=== PATIENT | male | born 1960 | race Caucasian/White ===

== ENCOUNTER → 2016-03-14 08:11 | Day surgery (SDC) | payer BC ==
[~2016-03-14 08:11] MED LIST: Buffered Lidocaine 1% SYR 3ML* 3 ML/SYR SYRINGE INTRADERM ONE; Buffered Lidocaine 1% SYR 3ML* 3 ML/SYR SYRINGE ONE; Bupivacaine 0.25% EPI 200,000* 30 ML SDV ONE; Cisatracurium* 2 MG/ML MDV 10 ML ONE; Dexamethasone IV* 4 MG/ML 1 ML (4 MG) ONE; DiMENhydriNATE IV* 50 MG/ML VIAL IV PUSH PRN; EPHEDrine (Pressors)* 50 MG/ML VIAL ONE; Famotidine IV* 10 MG/ML 2 ML (20 mg) IV ONE; Famotidine IV* 10 MG/ML 2 ML (20 mg) ONE; Glycopyrrolate IV* 0.2 MG/ML 1 ML VIAL ONE; HYDROmorphone INJ* 1 MG/ML CARPUJECT SYRINGE IV PRN; KETAMINE HCL* 50 MG/ML 10 ML VIAL ONE; Ketorolac INJ* 30 MG/ML 1 ML VIAL ONE; Lidocaine 2% MPF* 2 ML VIAL ONE; Metoclopramide TAB* 10 MG ONE; Metoclopramide TAB* 10 MG PO ONE; Midazolam* 1 MG/ML 5 ML VIAL (5 MG) ONE; Neostigmine Methylsulfate* 2 MG/2 ML SYRINGE ONE; Ondansetron INJ* 2 MG/ML VIAL IV PRN; Ondansetron INJ* 2 MG/ML VIAL ONE; Propofol* 10 MG/ML 20 ML BTL IV PUSH ONE; ceFAZolin 2 GM PREMIX (*) 2 GM/50 ML BAG IVPB ONE; fentaNYL* 50 MCG/ML 2 ML VIAL (100 MCG VIAL) IV PRN; fentaNYL* 50 MCG/ML 5 ML VIAL (250 MCG VIAL) ONE; oxyCODONE/Acetamin 5/325 MG* TAB PO PRN
--- NOTE | 2016-03-14 12:34 | SURGPN ---
Brief Operative Note - Surgery Procedures: Procedures Pre-OP Diagnoses: Bilateral inguinal hernia Post-op Diagnosis: same Procedure: Laparoscopic bilateral hernia repair with mesh Surgeon: Tomy Asst: Deonte Anethesia: ESTEFANIA Rodriguez EBL: minimal IVF: 2450cc LR Specimen: none Drains: none
[2016-03-14 14:04] VITALS: BP 120/71
--- NOTE | 2016-03-14 21:45 | OP ---
DATE OF OPERATION: 03/14/16 [facility] DATE OF : 64 SURGEON: Eduardo Huitron MD LOCAL [employer] SYSTEMS ADMINSTRATOR: David Marshall MD ANESTHESIOLOGIST: Dr. Rodriguez. ANESTHESIA: General. PRE-OP DIAGNOSIS: Bilateral inguinal hernia. POST-OP DIAGNOSIS: Bilateral inguinal hernia. OPERATIVE PROCEDURE: Laparoscopic bilateral inguinal hernia repair with mesh. ESTIMATED BLOOD LOSS: Minimal. FLUIDS: 2450 cc of lactated Ringer's given. SPECIMEN: None. COUNTS: Lap pad count and instrument count correct at the end of procedure. DESCRIPTION OF PROCEDURE: The patient was identified in the preoperative area, marked, clipped off hair, case discussed, and the patient signed consent. He was taken back to the operating room and placed on the operating table in supine position. Preoperative antibiotics were given. Sequential devices were placed on bilateral lower extremities. General anesthesia was induced. Estrada catheter was inserted and the patient's abdomen was prepped and draped in a standard surgical fashion and a time-out was performed. An infraumbilical incision was made. This was deepened down through the anterior fascia on the right. This was incised and the rectus pillar retracted laterally and the preperitoneal plane opened up. A balloon dissector was then inserted towards the pubic symphysis and a camera was inserted through this and the balloon dilator was insufflated. This opened up a nice peritoneal space and the balloon dilator was removed and a blunt cannula was inserted. Laparoscope was inserted through this and additional trocars were placed in the following position: Two 5 mm along the lower midline. Blunt dissection was then carried out to expose pubic symphysis and Jimmie ligament on both left and right. The epigastric vessels were isolated on the left side and maintained anteriorly. We entered into Bogros space and cleared off the space laterally. An indirect hernia was identified. The sac was bluntly dissected from the spermatic structures until it completely reduced intra-abdominally. There was no direct hernia. Then, attention was turned towards the right side. Again, Jimmie ligament was cleared off. There was no direct hernia. The lateral space of Bogros was cleared off and the peritoneum extending towards the internal ring was identified. This was bluntly freed up. It was not as large hernia as the left side. We did enter into the peritoneum, but this was reapproximated with 5-mm clips. With the myopectineal orifice cleared of any herniation, the right- sided 3D Bard mesh was then opened up, large size. This was placed into the preperitoneal plane and allowed to unfurl and tacked to Jimmie ligament and also laterally and also anteriorly at the rectus muscle laid without wrinkling or tension. A similar mesh was placed on the left side in a similar fashion, tacked such that the 2 meshes were crossing. Also tacked the Jimmie ligament also laterally. We did pull up this larger hernia sac and loosely tacked it to the inside of the mesh. The preperitoneal plane was then allowed to collapse. Trocar was removed under direct vision. Attention was then turned towards the posterior fascia at the umbilical port site. This was incised and entry into the abdominal cavity was made with a small incision just to allow the air to come out. Once this desufflated, we reapproximated the posterior fascia with 2-0 Polysorb sutures and the anterior fascia was reapproximated with 0 Polysorb suture in a [id number] fashion. All 3 skin incisions were reapproximated with 4-0 Monocryl subcuticular sutures followed by Steri-Strips and sterile dressing. The patient tolerated the procedure well. Estrada catheter was removed and he was awoken up and transferred to PACU in stable condition. CC: Vikas Donnelly MD * [id number]/[facility] #: [id number] TOM
== END | disposition home or self-care (01) ==
LOC: OR 08:11
PROVIDERS: ATTEND Surgery
DX: K40.20 Bilateral inguinal hernia, without obstruction or gangrene, not specified as recurrent (principal); I10 Essential (primary) hypertension; G47.33 Obstructive sleep apnea (adult) (pediatric)
CPT/HCPCS: A9270-GY; C1776; C1781; J0690; J1100; J1885; J2250; J2405; J2704; J3010

== ENCOUNTER 2016-07-15 03:34 | Observation (INO) | payer BC ==
[2016-07-15] MEDS ORDERED: Aspirin Low Dose CHEW TAB* 81 MG PO ONE (04:00)
[2016-07-15 04:13] LABS: Hematocrit 47 % (42-52); Hemoglobin 15.9 g/dl (14.0-18.0); Mean Corpuscular HGB Conc 34 g/dl (31-36); Mean Corpuscular Hemoglobin 32 pg (27-31); Mean Corpuscular Volume 95 fL (80-94); Mean Platelet Volume 8 um3 (7.4-10.4); Red Blood Count 4.93 10^6/ul (4.0-5.4); Red Cell Distribution Width 13 % (10.5-15); White Blood Count 7.3 10^3/ul (3.5-10.8)
[2016-07-15 04:29] LABS: Albumin 4.4 g/dL (3.2-5.2); BUN/Creatinine Ratio 18.4 (8-20); Calcium 9.3 mg/dL (8.6-10.3); EGFR African American 102.9 (>60); Magnesium 2.1 mg/dL (1.9-2.7); Potassium 3.9 mmol/L (3.5-5.0); Total Bilirubin 0.5 mg/dL (0.2-1.0); Total Protein 7.4 g/dL (6.4-8.9)
--- NOTE | 2016-07-15 04:33 | ED ---
Domo Nugent SooYoung, scribed for Gumaro Rothman MD on 07/15/16 at 0407 . 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 Pt was recently dx with angina and is scheduled for a stress test. He's had varying degrees of nausea for the past 24 hours. Additionally, he notes he's been feeling anxious and unable to sleep tonight due to the angina. PCP is Dr. Donnelly. - History of Current Complaint Chief Complaint: EDChestPainROMI Time Seen by Provider: 07/15/16 03:58 Hx Obtained From: Patient Onset/Duration: Atraumatic, Still Present Timing: Constant Current Severity: Moderate Pain Intensity: 5 Pain Scale Used: 0-10 Numeric Associated Signs and Symptoms: Positive: Anxiety, Nausea - Allergy/Home Medications Allergies/Adverse Reactions: Allergies Allergy/AdvReac Type Severity Reaction Status Date / Time ENVIRONMENTAL Allergy SNEEZE Uncoded 07/15/16 05:33 Home Medications: Home Medications Aspirin EC Low Dose* [Ecotrin EC Low Dose 81 MG*] 81 mg PO DAILY 07/15/16 [ History Confirmed 07/15/16] PMH/Surg Hx/FS Hx/Imm Hx Previously Healthy: No Cardiovascular History: Reports: Hx Angina, Hx Hypertension Respiratory History: Reports: Hx Sleep Apnea Sensory History: Reports: Hx Contacts or Glasses - GLASSES Denies: Hx Hearing Aid Opthamlomology History: Reports: Hx Contacts or Glasses - GLASSES - Surgical History Surgery Procedure, Year, and Place: [place] [facility] [place] SURGERY, [facility]. [place] [facility] [place] Anesthesia Reactions: Yes - DOES NOT COME OUT WELL Infectious Disease History: Denies: Traveled Outside the [place] in Last 30 Days - Family History Known Family History: Positive: Other - POS: ANESTHESIA RXN, SISTER - Social History Occupation: Employed Full-time Lives: With Family Alcohol Use: None Hx Substance Use: No Substance Use Type: Reports: None Hx Tobacco Use: No Smoking Status (MU): Never Smoked Tobacco Have You Smoked in the Last Year: No Review of Systems Positive: Chest Pain Positive: Nausea Positive: Anxious All Other Systems Reviewed And Are Negative: Yes Physical Exam Triage Information Reviewed: Yes Vital Signs On Initial Exam: Initial Vitals Temp Pulse Resp BP Pulse Ox 98 F 86 18 157/108 99 07/15/16 03:38 07/15/16 03:38 07/15/16 03:38 07/15/16 03:38 07/15/16 03:38 Vital Signs Reviewed: Yes Appearance: Positive: Well-Appearing, No Pain Distress Skin: Positive: Warm Head/Face: Positive: Normal Head/Face Inspection Eyes: Positive: VIPIN ENT: Positive: Hearing grossly normal Neck: Positive: Supple Respiratory/Lung Sounds: Positive: Clear to Auscultation, Breath Sounds Present Cardiovascular: Positive: RRR Abdomen Description: Positive: Nontender, Soft Bowel Sounds: Positive: Present Musculoskeletal: Positive: Strength/ROM Intact Neurological: Positive: Alert, Oriented to Person Place, Time Diagnostics - Vital Signs Vital Signs Temp Pulse Resp BP Pulse Ox 07/15/16 03:38 98 F 86 18 157/108 99 - Laboratory Lab Results: Lab Results 07/15/16 07/15/16 07/15/16 Range/Units 04:00 04:00 04:00 WBC 7.3 (3.5-10.8) 10^3/ul RBC 4.93 (4.0-5.4) 10^6/ul Hgb 15.9 (14.0-18.0) g/dl Hct 47 (42-52) % MCV 95 H (80-94) fL MCH 32 H (27-31) pg MCHC 34 (31-36) g/dl RDW 13 (10.5-15) % Plt Count 232 (150-450) 10^3/ul MPV 8 (7.4-10.4) um3 Neut % (Auto) 63.9 (38-83) % Lymph % (Auto) 26.8 (25-47) % [place]man % (Auto) 7.0 (1-9) % Eos % (Auto) 1.6 (0-6) % Baso % (Auto) 0.7 (0-2) % Absolute Neuts (auto) 4.7 (1.5-7.7) 10^3/ul Absolute Lymphs (auto) 1.9 (1.0-4.8) 10^3/ul Absolute Monos (auto) 0.5 (0-0.8) 10^3/ul Absolute Eos (auto) 0.1 (0-0.6) 10^3/ul Absolute Basos (auto) 0 (0-0.2) 10^3/ul Absolute Nucleated RBC 0 10^3/ul Nucleated RBC % 0.1 Sodium 137 (133-145) mmol/L Potassium 3.9 (3.5-5.0) mmol/L Chloride 106 (101-111) mmol/L Carbon Dioxide 25 (22-32) mmol/L Anion Gap 6 (2-11) mmol/L BUN 18 (6-24) mg/dL Creatinine 0.98 (0.67-1.17) mg/dL Est GFR ( Amer) 102.9 (>60) Est GFR (Non-Af Amer) 80.0 (>60) BUN/Creatinine Ratio 18.4 (8-20) Glucose 106 H (70-100) mg/dL Lactic Acid 1.2 (0.5-2.0) mmol/L Calcium 9.3 (8.6-10.3) mg/dL Magnesium 2.1 (1.9-2.7) mg/dL Total Bilirubin 0.50 (0.2-1.0) mg/dL AST 18 (13-39) U/L ALT 24 (7-52) U/L Alkaline Phosphatase 60 (34-104) U/L Troponin I 0.00 (<0.04) ng/mL Total Protein 7.4 (6.4-8.9) g/dL Albumin 4.4 (3.2-5.2) g/dL Globulin 3.0 (2-4) g/dL Albumin/Globulin Ratio 1.5 (1-3) Result Diagrams: 07/15/16 09:50 07/15/16 09:30 Lab Statement: Any lab studies that have been ordered have been reviewed, and results considered in the medical decision making process. - Radiology CXR Xray Interpretation: No Acute Changes Radiology Interpretation Completed By: ED Physician - EKG 1 EKG Rhythm: Sinus Rhythm Chest Pain Course/Dx - Course Course Of Treatment: Pt is a 55 y/o M presenting with CP, nausea and anxiety. Recently diagnosed with angina. He is scheduled to have a stress test. Pt given aspirin in ED. Negative trop. CXR is nml. EKG is sinus rhythm. SO due to shift change. Dispo pending second trop. - Diagnoses Provider Diagnoses: ACS (acute coronary syndrome) Discharge - Discharge Plan Condition: Stable Disposition: ADMITTED TO [facility] Discharge Disposition Comment: SO due to shift change, pending 2nd trop The documentation as recorded by the Domo duke SooYoung accurately reflects the service I personally performed and the decisions made by me, Gumaro Rothman MD.
--- NOTE | 2016-07-15 07:51 | RAD ---
HISTORY: Chest pain COMPARISONS: March 19, 2004 VIEWS:1: Single frontal portable view of the chest at 4:10 AM FINDINGS: LINES AND TUBES: None. CARDIOMEDIASTINAL SILHOUETTE: The cardiomediastinal silhouette is normal for portable technique. PLEURA: The costophrenic angles are sharp. No pleural abnormalities are noted. LUNG PARENCHYMA: The lungs are clear. ABDOMEN: The upper abdomen is clear. There is no subphrenic gas. BONES AND SOFT TISSUES: No bone or soft tissue abnormalities are noted. IMPRESSION: NO ACTIVE CARDIOPULMONARY DISEASE.
[2016-07-15] MEDS ORDERED: Ondansetron INJ* 2 MG/ML VIAL IV PRN (09:18)
[2016-07-15] MEDS ORDERED: Acetaminophen TAB* 325 MG PO PRN (09:18)
[2016-07-15] MEDS ORDERED: Calcium Carbonate CHEW TAB* 500 MG (TUMS) PO PRN (09:22)
[2016-07-15 09:56] LABS: C Reactive Protein 1.39 mg/L (< 5.00); EGFR African American 113.5 (>60); EGFR Non-African American 88.3 (>60)
[2016-07-15 10:01] LABS: Hematocrit 47 % (42-52); Hemoglobin 16.1 g/dl (14.0-18.0); Mean Corpuscular HGB Conc 34 g/dl (31-36); Mean Corpuscular Hemoglobin 32 pg (27-31); Mean Corpuscular Volume 95 fL (80-94); Mean Platelet Volume 8 um3 (7.4-10.4); Red Blood Count 4.98 10^6/ul (4.0-5.4); Red Cell Distribution Width 13 % (10.5-15)
[2016-07-15 10:50] LABS: TSH (Thyroid Stimulating Horm) 3.93 mcIU/mL (0.34-5.60)
[2016-07-15 10:50] LABS: Erythrocyte Sed Rate 12 mm/Hr (0-20)
--- NOTE | 2016-07-15 11:25 | HP ---
HISTORY AND PHYSICAL: DATE OF ADMISSION: 07/15/16 PRIMARY CARE PROVIDER: Dr. Donnelly. ATTENDING PHYSICIAN WHILE IN THE HOSPITAL: Dr. Aicha Britton* (report is being dictated by Oneil Armijo NP). CHIEF COMPLAINT: Chest pain. HISTORY OF PRESENTING ILLNESS: Mr. Harvey is a 55-year-old male patient. He carries a history of hypothyroidism, hyperlipidemia and hypertension. He comes in today stating that he has been having some chest discomfort. He noticed that last month when he was out in [place], he was skiing and while skiing he started feeling some chest heaviness, tightness, pressure, not feeling well. He states that he had to stop skiing. His stated that he looked tapia and over the last week, he has been feeling some discomfort, not feeling well. He has been having some nausea. He has been feeling some chest tightness. He noted yesterday that when he woke up, felt nauseous. He had some discomfort in the epigastric area. He had some chest heaviness and tightness. It went into the jaw and into the arm. He laid back down. When he got up, he felt better and then he went back outside to do some yard work and he started having some chest discomfort again when doing the yard work. The patient was concerned. His discomfort really did not go away yesterday at all. Last night again, he was still having this discomfort, feeling somewhat short of breath, feeling nauseous. He decided to come into the ER to be evaluated. He was set up for a stress test on July 30 in the outpatient setting. However , he was concerned. He denies any recent URI-type symptoms. Denies having any calf pain. Denies having any shortness of breath. Currently he states the discomfort is gone, he says he just feels a little nauseous. He denies having any change in medications with the exception that he did stop his thyroid medications. He stopped his cholesterol medication. He states his blood pressure has been running high in the outpatient setting, although it has been stable here. He was concerned, he came in, he was evaluated. Because of he fact that he had some exertional chest pain yesterday, hospitalist service was asked to evaluate for consult. PAST MEDICAL HISTORY: Significant for: 1. Hypothyroidism. 2. Hyperlipidemia. 3. Hypertension. PAST SURGICAL HISTORY: 1. He has had a left knee arthroscopy. 2. He has had right shoulder arthroscopy. 3. Hernia repair. MEDICATIONS: The current meds that he is taking include: 1. Aspirin 81 mg daily. 2. Nitro 0.4 mg sublingual q. 5 minutes x3 for chest pain. ALLERGIES TO MEDICATIONS: Include no known drug allergies. FAMILY HISTORY: His father had a heart attack at 80 years old. His mother's history is reviewed and noncontributory. SOCIAL HISTORY: He does not smoke. He does not drink. He is a trailer truck driver. Surrogate decision maker is his . REVIEW OF SYSTEMS: There is no documented fever. He denied having any significant weight change. There was no double vision. He denies having any ear discharge. There was no rhinorrhea. No sore throat, no thyroid enlargement. Denies having any chest pain currently. He did have some per my HPI. Denies any abdominal pain. There was no nausea, no vomiting. No dysuria, no frequency. No seizure. There was no loss of consciousness, no pruritus, and no skin ulcerations. Review of 14 systems completed, all others negative. PHYSICAL EXAMINATION GENERAL: At this time, Mr. Harvey is a 55-year-old male patient. He appears to be well-developed, well-nourished. He is sitting in the hospital bed. He does not appear to be any acute distress. VITAL SIGNS: Reveals blood pressure 118/78 with a pulse of 62, respirations 18 , O2 sat 96%, temperature 98. HEENT: Head is atraumatic and normocephalic. Eyes: EOMs are intact. Sclerae was anicteric and not pale. Throat: Oral mucosa appeared to be moist. No oropharyngeal erythema. NECK: Supple. LUNGS: Clear to auscultation. There were no wheezes, rales or rhonchi. HEART: Heart sounds S1, S2. Regular rate and rhythm. No murmurs, rubs, or gallops. ABDOMEN: Soft, flat, nontender. Bowel sounds were present. EXTREMITIES: Pulses were 2+ throughout. He was able to move all 4 extremities with 5/5 strength. NEUROLOGIC: The patient is awake, he is alert. He is oriented x3. Tongue midline. Technical Editor were equal. He had no gross focal deficits. SKIN: Intact. DIAGNOSTIC STUDIES/LAB DATA: The labs today revealed a WBC of 7.3, RBC of 4.93 , hemoglobin of 15.9, hematocrit of 232. Sodium 137, potassium 3.9, chloride of 106, bicarb 25, BUN 18, creatinine 0.98, glucose 106, lactate 1.2, calcium 9.3, total mag was 2.1, total bili 0.5, AST 18 , ALT 24, alk phos 60, troponin 0, repeat troponin was 0. His albumin was 4.4. The patient did have a chest x-ray obtained today, which showed, on my review, no infiltrates. Radiology read as no active disease. He did have an EKG today which did show a sinus bradycardia at a rate of 57. He did have ST elevation in leads II, III, aVF and also slightly in lead I, and there did appear to be elevations in V4, V5, and V6. When I reviewed the EKG that was done in Dr. Donnelly's office, this appears to be similar. The EKG morphology, I am trying to print this out, and I will keep it in the chart. There does not appear to be any acute change. Old medical records were reviewed. ASSESSMENT AND PLAN: Mr. Harvey is a 55-year-old male patient coming in to the ER today with complaints of chest discomfort. He will be admitted under observation status for: 1. Chest pain. Again the etiology is unclear, although he did have some symptoms that were exertional, concerning for angina. I do think that he warrants a stress test. Unfortunately, there is no stress testing being done tomorrow on Saturday, being the holiday. However, the patient is quite concerned and the earliest he can get a stress test is on the July 30. I think with his story, he is warranted to stay until Saturday to have the stress test. For the time being, I will cycle his troponins. Place him on telemetry. We will get serial EKGs, check lipid panel, A1c. Place him on aspirin and we will continue to follow. I am going to check a D- dimer. 2. Hypothyroidism. We will check a TSH. 3. Hyperlipidemia. We will check a lipid panel. 4. Hypertension. His blood pressure is stable here, we will monitor. 5. DVT prophylaxis. He is moderate risk. He will be placed on heparin subcu. 6. Code status. Full code. 7. Fluids, electrolytes and nutrition. Heart healthy diet, then he will be n.p.o. Saturday morning for a stress test. TIME SPENT: Time spent on this admission was approximately 60 minutes; greater than half the time was spent [id number] with the patient, obtaining my history of physical; the other half time was spent going over the plan of care with the patient and implementing plan of care. I did discuss the plan of care with my attending, Dr. Britton; she is in agreement. ONEIL ARMIJO NP CC: Dr. Donnelly* [id number]/[facility] #: [id number] TOM
[2016-07-15] MEDS: Heparin VIAL(*) 5000 UNITS/ML VIAL (FIVE THOUSAND) SUBCUT SCH ×2 (13:33→21:35)
[2016-07-16] MEDS: Heparin VIAL(*) 5000 UNITS/ML VIAL (FIVE THOUSAND) SUBCUT SCH ×2 (05:37→13:39)
[2016-07-16 06:05] LABS: Hematocrit 45 % (42-52); Hemoglobin 15.6 g/dl (14.0-18.0); Mean Corpuscular HGB Conc 34 g/dl (31-36); Mean Corpuscular Hemoglobin 33 pg (27-31); Mean Corpuscular Volume 95 fL (80-94); Mean Platelet Volume 7 um3 (7.4-10.4); Red Blood Count 4.78 10^6/ul (4.0-5.4); Red Cell Distribution Width 13 % (10.5-15); White Blood Count 7.3 10^3/ul (3.5-10.8)
[2016-07-16 06:18] LABS: BUN/Creatinine Ratio 15.2 (8-20); Calcium 9.2 mg/dL (8.6-10.3); EGFR African American 101.7 (>60); EGFR Non-African American 79.1 (>60); HDL Cholesterol 45.9 mg/dL; Potassium 4.4 mmol/L (3.5-5.0)
[2016-07-16] MEDS: Aspirin Low Dose CHEW TAB* 81 MG PO SCH (08:46)
--- NOTE | 2016-07-16 13:53 | PN ---
Subjective Date of Service: 07/16/16 Interval History: This is a 55 yo gentleman with HTN and HLD who presented with c/o CP. Patient has had intermittent symptoms over the the last couple of weeks. Patient is awaiting stress testing. He offers no c/o CP, SOB, n/v, etc since admission. Objective Active Medications: Acetaminophen (Tylenol Tab*) 650 mg PO Q4H PRN PRN Reason: FEVER/PAIN Aspirin (Aspirin Low Dose Tab*) 81 mg PO DAILY [facility] Last Admin: 07/16/16 08:46 Dose: 81 mg Atorvastatin Calcium (Lipitor*) 40 mg PO 2100 BRUNILDA Calcium Carbonate (Tums*) 500 mg PO Q4H PRN PRN Reason: INDIGESTION Heparin Sodium (Porcine) (Heparin Vial(*)) 5,000 units SUBCUT Q8HR [facility] Last Admin: 07/16/16 13:39 Dose: Not Given Ondansetron HCl (Zofran Inj*) 4 mg IV Q6H PRN PRN Reason: NAUSEA Vital Signs: Temp Pulse Resp BP Pulse Ox 97.6 F 74 16 127/84 95 07/16/16 07:57 07/16/16 07:57 07/16/16 08:00 07/16/16 03:36 07/16/16 08:00 Appearance: Well appearing middle aged gentleman in NAD Respiratory: Symmetrical Chest Expansion and Respiratory Effort, Clear to Auscultation Cardiovascular: NL Sounds; No Murmurs; No JVD, RRR Abdominal: NL Sounds; No Tenderness; No Distention Extremities: No Edema Skin: No Rash or Ulcers Neurological: Alert and Oriented x 3 Result Diagrams: 07/16/16 05:51 07/16/16 05:51 Additional Lab and Data: Laboratory Tests 07/15/16 07/15/16 07/15/16 04:00 07:22 09:30 Troponin I 0.00 0.00 0.00 Diagnostic Imaging: CXR - NAD EKG - sinus rhythm, rather diffuse ST elevation that appears similar to prior outpt EKG Assess/Plan/Problems-Billing Assessment: This is a 55 yo male with h/o HTN and HLD who presents with c/o CP. - Patient Problems (1) Chest pain Comment: No evidence of ACS Pending stress test Cont ASA (2) HTN (hypertension) Comment: Normotensive during hospital stay No home medications, cont to monitor (3) HLD (hyperlipidemia) Comment: Patient reports intolerance to multiple statins, stating he has "tried them all " Noted TC 212, LDL 142 (4) Full code status (5) DVT prophylaxis Comment: SQ Heparin Status and Disposition: Observation. Pending stress test for tomorrow
[2016-07-16] MEDS ORDERED: Atorvastatin* 40 MG TAB PO SCH (21:00)
[2016-07-17] MEDS: Heparin VIAL(*) 5000 UNITS/ML VIAL (FIVE THOUSAND) SUBCUT SCH ×2 (01:58→05:47)
[2016-07-17] MEDS: Aspirin Low Dose CHEW TAB* 81 MG PO SCH (07:46)
[2016-07-17 09:56] VITALS: BP 112/77
--- NOTE | 2016-07-17 13:34 | RAD ---
Edited for charges. Indication: Chest pain. Myocardial perfusion scan was performed utilizing 1 day protocol. 10.5 mCi of technetium 99m tetrofosmin was injected for the rest portion of the study. Treadmill stress study was performed and 24.9 mCi of technetium 99m Myoview was injected for the stress portion of the study. The maximum heart rate achieved was 94% of the maximum predicted value. There is homogeneous distribution of the radiotracer throughout the left ventricle. There is no evidence of fixed or reversible perfusion defects identified. The ejection fraction at stress is 44%. Evaluation of wall motion demonstrates no evidence of focal wall motion abnormality. IMPRESSION: No evidence of fixed or reversible perfusion defect is identified. ASSESSMENT: Low risk Based on imaging criteria from ACC/AHA 2002 Guideline Update for the Management of Patients With Chronic Stable Angina Table 23. Noninvasive Risk Stratification. MTDD
--- NOTE | 2016-07-18 01:47 | DS ---
DISCHARGE SUMMARY: DATE OF ADMISSION: 07/15/16 DATE OF DISCHARGE: 07/17/16 PRIMARY CARE PROVIDER: Dr. Donnelly. DISCHARGING PROVIDER: AYLEEN Banks SUPERVISING PHYSICIAN: Beverly Berger MD* (dictated by AYLEEN Bakns). PRIMARY DISCHARGE DIAGNOSIS: Chest pain. SECONDARY DISCHARGE DIAGNOSES: 1. History of hypertension - normotensive throughout his hospital stay without medication. 2. Hyperlipidemia - intolerant to statins. 3. History of reported thyroid disease with normal TSH during his hospital stay without levothyroxine for several weeks. 4. Nicotine dependence. DISCHARGE MEDICATIONS: 1. Aspirin 81 mg p.o. daily. 2. Nicotine gum 2 mg p.o. q.1 hour as needed for nicotine craving. Medication changes: Nicotine gum as needed. HOSPITAL IMAGIN. Chest x-ray shows no acute process. 2. Nuclear stress test shows a low risk study without evidence of reversible ischemia or infarct. 3. EKG shows sinus rhythm without ischemic changes. HOSPITAL COURSE: This is a fit and active 55-year-old gentleman with history of hypertension but not on any home antihypertensives, as well as known hyperlipidemia, intolerant to multiple statins and a family history of coronary artery disease who presented to the emergency department with complaints of chest pain. The patient's symptoms first started about a month ago when he was in [place] skiing when he had a sudden onset of chest tightness and some mild shortness of breath. His symptoms resolved rather spontaneously and he was able to finish his day of skiing at that time. He had a similar episode last week while hiking and again symptoms resolved rather spontaneously. The patient was seen by his primary care provider after that second episode who had scheduled him a stress test for about 2 weeks out. For the circumstances surrounding his admission, he had awoken from sleep with complaints of chest pain and tightness with some nausea that radiated to his jaw and shoulder. He subsequently presented to the emergency department for further evaluation. His initial EKG was benign as were his troponins. His initial vitals demonstrated some mild hypertension, but otherwise within normal limits. The patient was subsequently admitted to a period of observation and underwent serial troponins which remains negative and continuous telemetry monitoring which showed no dysrhythmias. Repeat 12-lead EKG showed no ST segment changes and the patient remained asymptomatic throughout his hospital stay. The patient underwent nuclear stress testing which was read as a low risk study without evidence of ischemia or prior infarct. The patient does have a history of hiatal hernia which may be contributing to his acute symptoms, but they seem to be otherwise noncardiac. The patient also reports that he has a history of using chewing tobacco and would very much like to quit. He has a history of self-identified alcoholism and has been sober for several years. He would like to trial the use of nicotine gum to help with his tobacco addiction. DISPOSITION AND FOLLOWUP PLAN: The patient is being discharged to home. Nicotine gum provided for help with addiction to nicotine. Recommend close followup with his primary care provider regarding his hospital stay. I suspect his symptoms are likely GI origin. AYLEEN BANKS CC: Dr. Donnelly* [id number]/[facility] #: [id number] TOM
== END 2016-07-17 14:10 | disposition home or self-care (01) ==
LOC: ED 03:34 → MEDTELE 06:59
PROVIDERS: ADMIT Hospitalist; ATTEND Internal Medicine
DX: R07.9 Chest pain, unspecified (principal); I10 Essential (primary) hypertension; E78.5 Hyperlipidemia, unspecified; F17.220 Nicotine dependence, chewing tobacco, uncomplicated; E03.9 Hypothyroidism, unspecified; R00.1 Bradycardia, unspecified; R94.31 Abnormal electrocardiogram [ECG] [EKG]; I20.9 Angina pectoris, unspecified; Z79.82 Long term (current) use of aspirin; Z79.899 Other long term (current) drug therapy
CPT/HCPCS: 36415; 71010; 78452; 80048; 80053; 80061; 82565; 83036; 83605; 83735; 84443; 84484; 84520; 85025; 85379; 85610; 85652; 85730; 86140; 93005; 93017; 96372; 99283; A9270-GY; A9502; G0378; J1644